=== PATIENT | female | born 1945 ===

== ENCOUNTER 2021-01-20 06:53 | Inpatient (IN) ==
[~2021-01-20 06:53] MED LIST: Buffered Lidocaine 1% SYRIN 1 ml INTRADERM ONE; Lactated Ringers 1000 ml BAG 1,000 ML IV SCH
[2021-01-20] MEDS ORDERED: ceFAZolin 2 GM in NS PREMIX 2 GM/100 ML BAG IVPB ONE (07:03)
[2021-01-20] MEDS ORDERED: Ropivacaine 5 MG/ML 20 ML VIAL 0.5% (100 MG) ONE (07:06)
[2021-01-20] MEDS ORDERED: Phenylephrine IV 10 MG/ML 1 ml VIAL ONE (07:15)
[2021-01-20] MEDS ORDERED: Lidocaine 2% PF 5 ML VIAL ONE (07:15)
[2021-01-20] MEDS ORDERED: Dexamethasone IV 4 MG/ML VIAL 1 ml VIAL ONE ×2 (07:15→07:25)
[2021-01-20] MEDS ORDERED: Midazolam 2 mg/2 ml VIAL 1 mg/ml 2 ml VIAL (2 mg) ONE ×2 (07:15→07:26)
[2021-01-20] MEDS ORDERED: Ondansetron 4 mg VIAL 2 MG/ML 2 ml VIAL ONE (07:25)
[2021-01-20] MEDS ORDERED: fentaNYL 100 mcg/2 ml 50 MCG/ML VIAL ONE (07:26)
[2021-01-20] MEDS ORDERED: Buffered Lidocaine 1% SYRIN 1 ml INTRADERM ONE (07:40)
[2021-01-20] MEDS ORDERED: Propofol 10 MG/ML 20 ML BTL ONE (07:53)
[2021-01-20] MEDS ORDERED: Rocuronium 50 mg VIAL 10 mg/ml 5 ml VIAL (50 mg) ONE (07:53)
[2021-01-20] MEDS ORDERED: HYDROmorphone 1 MG/1 ML SYRINGE ONE ×3 (08:19→10:55)
[2021-01-20] MEDS ORDERED: DiMENhydriNATE IV 50 mg/ml 1 ml VIAL IV PUSH PRN (08:50)
[2021-01-20] MEDS ORDERED: Naloxone 0.4 mg VIAL 0.4 mg/ml 1 ml VIAL IV PRN (08:50)
[2021-01-20] MEDS ORDERED: diPHENhydraMINE IV 50 MG/ML 1 ml VIAL (BENADRYL) IV PRN ×2 (08:50→09:05)
[2021-01-20] MEDS ORDERED: HYDROmorphone 1 MG/1 ML SYRINGE IV PRN (08:50)
[2021-01-20] MEDS ORDERED: fentaNYL 250 mcg/5 ml 50 MCG/ML 5 ml VIAL (250 MCG) ONE (09:01)
[2021-01-20] MEDS ORDERED: Ondansetron ODT 4 mg TAB 4 MG TAB PO PRN (09:05)
[2021-01-20] MEDS ORDERED: Morphine 2 MG/ML SYRINGE IV PRN (09:05)
[2021-01-20] MEDS ORDERED: Magnesium Hydroxide LIQ 30 ML UDC PO PRN (09:05)
[2021-01-20] MEDS ORDERED: Ondansetron 4 mg VIAL 2 MG/ML 2 ml VIAL IV PRN (09:05)
[2021-01-20] MEDS ORDERED: diPHENhydraMINE 25 mg TAB PO PRN (09:05)
[2021-01-20] MEDS ORDERED: Lactulose 30 ml UDC PO PRN (09:05)
[2021-01-20] MEDS ORDERED: Acetaminophen IV 1 GM/100ML 100 ML IV ONE (09:12)
[2021-01-20] MEDS ORDERED: Flunisolide NASAL (NF) 1 SPRAY NASAL.SPR BOTH NARES PRN (09:24)
[2021-01-20] MEDS ORDERED: DiMENhydriNATE IV 50 mg/ml 1 ml VIAL ONE (10:55)
[2021-01-20] MEDS ORDERED: hydrALAZINE 20 mg/ml 1 ML Vial IV ONE (11:10)
[2021-01-20] MEDS: Lactated Ringers 1000 ml BAG 1,000 ML IV SCH ×2 (12:30→23:01)
[2021-01-20] MEDS: carBAMazepine ER 100mg TAB PO SCH (13:18)
[2021-01-20 14:00] LABS: ABS Lymphocytes 0.5 10^3/ul (1.0-4.8); ABS Monocytes 0.3 10^3/ul (0-0.8); ABS Neutrophils 13.6 10^3/ul (1.5-7.7); Hematocrit 36 % (35-47); Lymphocyte % 3.7 %; Mean Corpuscular HGB Conc 33 g/dL (31-36); Mean Corpuscular Hemoglobin 30 pg (27-31); Mean Corpuscular Volume 90 fL (80-97); Mean Platelet Volume 7.8 fL (7.4-10.4); Platelet Count 333 10^3/uL (150-450); Red Blood Count 4.04 10^6 /uL (3.70-4.87); Red Cell Distribution Width 14 % (10-15); White Blood Count 14.4 10^3/uL (3.5-10.8)
[2021-01-20 14:16] LABS: Calcium 8.8 mg/dL (8.6-10.3); Potassium 4.4 mmol/L (3.5-5.0)
[2021-01-20] MEDS: ceFAZolin 1 GM ADVAN 1 GM in NS 0.9% 50 ML 50 ML IVPB SCH ×2 (16:19→23:30)
[2021-01-20] MEDS: Magnesium Hydroxide LIQ 30 ML UDC PO SCH (21:02)
[2021-01-21 06:47] LABS: Hematocrit 31 % (35-47); Hemoglobin 10.8 g/dL (12.0-16.0); Mean Platelet Volume 7.6 fL (7.4-10.4); Platelet Count 297 10^3/uL (150-450)
[2021-01-21 07:13] LABS: Calcium 8.4 mg/dL (8.6-10.3); Potassium 4.2 mmol/L (3.5-5.0)
[2021-01-21] MEDS: ceFAZolin 1 GM ADVAN 1 GM in NS 0.9% 50 ML 50 ML IVPB SCH (08:02)
[2021-01-21] MEDS: Magnesium Hydroxide LIQ 30 ML UDC PO SCH (08:09)
[2021-01-21] MEDS ORDERED: Enoxaparin 40 MG/0.4 ML SYR SUBCUT SCH (09:00)
[2021-01-21] MEDS ORDERED: Vitamin THERAPEUTIC TAB PO SCH (09:00)
[2021-01-21 11:49] VITALS: BP 164/74
[2021-01-21] MEDS ORDERED: Fluticasone NASAL SPRAY 50MCG 16 gm SPRAY BTL BOTH NARES PRN (12:00)
[2021-01-21] MEDS ORDERED: NS 0.9% 1000 ml BAG 1,000 ML IV ONE (13:44)
[2021-01-21] MEDS ORDERED: Iohexol 350 (CONTRAST) 500 ML MDV IV ONE (13:58)
[2021-01-21] MEDS: carBAMazepine ER 100mg TAB PO SCH (14:21)
[2021-01-21 14:33] LABS: TSH Ultra Thyroid Stim Horm 2.09 mcIU/mL (0.34-5.60)
[2021-01-21 16:28] LABS: White Blood Count 10.7 10^3/uL (3.5-10.8)
== END 2021-01-21 17:30 | disposition home or self-care (01) | DRG 470 ==
LOC: AA 06:53 → SSU 12:23
PROVIDERS: ADMIT Orthopaedic Surgery Adult Reconstructive Orthopaedic Surgery; ATTEND Orthopaedic Surgery Adult Reconstructive Orthopaedic Surgery